=== PATIENT | male | born 1975 | race Caucasian/White ===

== ENCOUNTER 2019-01-07 09:51 | Emergency (ER) | payer OTHER ==
[2019-01-07] MEDS ORDERED: Dexamethasone 10 MG/ML SDV IM ONE (11:17)
[2019-01-07] MEDS ORDERED: Orphenadrine 100 MG Tab.ER PO ONE (11:18)
--- NOTE | 2019-01-07 11:22 | EDM.PDOC ---
ED HPI GENERAL MEDICAL PROBLEM - General Chief Complaint: Back Pain or Injury Stated Complaint: BACK PAIN Time Seen by Provider: 01/07/19 10:59 Source of Information: Reports: Patient, RN Notes Reviewed History Limitations: Reports: No Limitations - History of Present Illness INITIAL COMMENTS - FREE TEXT/NARRATIVE: Patient is a 43-year-old male who presents to the ED for the evaluation of lower back pain that radiates to his right leg. Patient states this been present for around 2 weeks now, he was trying to go the chiropractor and was using ibuprofen, ice and heat, this was getting better however he jumped out of his work truck yesterday and twisted his back wrong and the pain became instantly worse. The patient states this is a sharp shooting pain all the way down his right leg that originates in his low back. He notes a prior history of sciatica, and a bulge disc diagnosed by MRI this last spring in [place]. He notes that the last time he had sciatica about one year ago he was treated with gabapentin, Flexeril, and a steroid injection. Patient states he still has some residual numbness in his right foot but this does not bother him. He is not followed up for surgical management of the bulged disc. The patient states he is able to walk but is very bothersome to do so. Patient rate his pain as 8 out of 10. He denies any sort of bowel or bladder issues or saddle anesthesia at this time. 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, NSAIDS, Other (see below) Other Treatments DRY CLEANING MACHINE OPERATOR: heat Right Lower Back Pain Score (Numeric/FACES): 8 - Related Data Allergies Allergy/AdvReac Type Severity Reaction Status Date / Time No Known Allergies Allergy Verified 01/07/19 10:22 Home Meds: Home Meds Orphenadrine [Norflex] 100 mg PO BID PRN #20 tab 01/07/19 [Rx] atorvaSTATin Calcium [Lipitor] 40 mg PO DAILY 01/07/19 [History] predniSONE [Deltasone] 20 mg PO ASDIRECTED #15 tablet 01/07/19 [Rx] traMADol [Ultram] 50 mg PO Q6H PRN #20 tab 01/07/19 [Rx] Past Medical History HEENT History: Reports: Impaired Vision Cardiovascular History: Reports: High Cholesterol Respiratory History: Reports: None Gastrointestinal History: Reports: None Genitourinary History: Reports: None Musculoskeletal History: Reports: Back Pain, Chronic Neurological History: Reports: None Psychiatric History: Reports: None Endocrine/Metabolic History: Reports: None Hematologic History: Reports: None Immunologic History: Reports: None Oncologic (Cancer) History: Reports: None Dermatologic History: Reports: None - Infectious Disease History Infectious Disease History: Reports: None - Past Surgical History Head Surgeries/Procedures: Reports: None HEENT Surgical History: Reports: Oral Surgery, Tonsillectomy Social & Family History - Family History Family Medical History: Noncontributory Cardiac: Reports: [place] - Tobacco Use Years of Tobacco use: 15 Packs/Tins Daily: 1 - Caffeine Use Caffeine Use: Reports: Energy Drinks - Recreational Drug Use Recreational Drug Use: Yes Drug Use in Last 12 Months: No Recreational Drug Type: Reports: Methamphetamine Recreational Drug Use Frequency: Not Used In Over 1 Year ED ROS GENERAL - Review of Systems Review Of Systems: See Below Constitutional: Denies: Fever, Chills HEENT: Reports: No Symptoms Respiratory: Denies: Shortness of Breath Cardiovascular: Denies: Chest Pain Endocrine: Reports: No Symptoms GI/Abdominal: Denies: Abdominal Pain, Constipation, Diarrhea, Nausea, Stool Incontinence, Vomiting : Denies: Incontinence Musculoskeletal: Reports: Back Pain (lower back pain that radiates to R leg), Leg Pain (right leg pain) Skin: Reports: No Symptoms Neurological: Reports: Numbness (to Right foot ), Tingling Psychiatric: Reports: No Symptoms Hematologic/Lymphatic: Reports: No Symptoms ED EXAM,LOWER BACK PAIN/INJURY - Physical Exam Exam: See Below Exam Limited By: No Limitations General Appearance: Alert, WD/WN, No Apparent Distress Throat/Mouth: Normal Inspection, Normal Lips, Normal Teeth, Normal Gums, Normal Oropharynx, Normal Voice, No Airway Compromise Head: Atraumatic, Normocephalic Neck: Normal Inspection Respiratory/Chest: No Respiratory Distress, Lungs Clear, Normal Breath Sounds, No Accessory Muscle Use, Chest Non-Tender Cardiovascular: Normal Peripheral Pulses, Regular Rate, Rhythm, No Murmur GI/Abdominal: Normal Bowel Sounds, Soft, Non-Tender, No Distention, No Mass Back Exam: Normal Inspection Extremities: Normal Inspection, Normal Capillary Refill, Limited Range of Motion (d/t pain) Neurological: Alert, Normal Mood/Affect, Normal Dorsiflexion, Normal Plantar Flexion, Normal Gait, No Motor/Sensory Deficits, Oriented x 3, Straight Leg Raise (R). No: Straight Leg Raise (L), Saddle Anesthesia Psychiatric: Normal Affect, Normal Mood Skin Exam: Warm, Dry, Intact, Normal Color, No Rash Course - Vital Signs Last Recorded V/S: Last Vital Signs Temp 97.2 F 01/07/19 10:26 Pulse 71 01/07/19 10:26 Resp 16 01/07/19 10:26 BP 180/104 H 01/07/19 10:26 Pulse Ox 97 01/07/19 10:26 - Orders/Labs/Meds Meds: Medications Discontinued Medications Generic Name Dose Route Start Last Admin Trade Name Freq PRN Reason Stop Dose Admin Dexamethasone 10 mg 01/07/19 11:17 01/07/19 11:25 Dexamethasone IM 01/07/19 11:18 10 mg ONETIME ONE Administration Orphenadrine Citrate 100 mg 01/07/19 11:18 01/07/19 11:25 Norflex PO 01/07/19 11:19 100 mg ONETIME ONE Administration - Re-Assessments/Exams Free Text/Narrative Re-Assessment/Exam: 01/07/19 11:24 Patient presents to the ED for the evaluation of lower back pain. Highly suspicious for sciatica in nature, did order 10 mg IM dexamethasone and 100 mg PO Norflex for initial management. Plan is to send the patient home with a burst of prednisone, Norflex, and other general recommendations. Departure - Departure Time of Disposition: 11:53 Disposition: Home, Self-Care 01 Condition: Fair Clinical Impression: Low back pain Qualifiers: Chronicity: acute Back pain laterality: right Sciatica presence: with sciatica Sciatica laterality: sciatica of right side Qualified Code(s): M54.41 - Lumbago with sciatica, right side - Discharge Information *PRESCRIPTION DRUG MONITORING PROGRAM REVIEWED*: No *COPY OF PRESCRIPTION DRUG MONITORING REPORT IN PATIENT ARPAN: No Prescriptions: Orphenadrine [Norflex] 100 mg PO BID PRN #20 tab PRN Reason: Spasms predniSONE [Deltasone] 20 mg PO ASDIRECTED #15 tablet traMADol [Ultram] 50 mg PO Q6H PRN #20 tab PRN Reason: Pain Instructions: Back Injury Prevention, [id number] Referrals: PCP,None [Primary Care Provider] - Forms: ED Department Discharge Additional Instructions: Your evaluated in the ED today for your sciatica. You were given an injection of steroids and a muscle relaxer. You were given a prescription for prednisone, Norflex, and tramadol. Please use the prednisone as directed, the Norflex may be used when necessary as a muscle relaxant, and the tramadol is for use when you're not getting pain relief. Please return to the ED if your symptoms should change or worsen.
== END 2019-01-07 12:19 | disposition home or self-care (01) ==
LOC: JD.ED 09:51
DX: M54.41 Lumbago with sciatica, right side (principal); E78.00 Pure hypercholesterolemia, unspecified; Z72.0 Tobacco use; Z79.899 Other long term (current) drug therapy
CPT/HCPCS: 96372; 99283; A9270; J1100